=== PATIENT | female | born 1940 | race Caucasian/White ===

== ENCOUNTER → 2017-10-05 | Outpatient (CLI) | payer MEDICARE, OTHER ==
[~2017-10-05] MED LIST: BYSTOLIC2.5 MG PO; CLONIDINE0.1 PO; FLEXERIL PO; GARLIC OIL1 EACH PO; GARLIC OIL1000 MG PO; HYDROCODON-ACE1 EAC7 PO; LEVOTHYROXINE 0.1 MG PO; MAVIK1 MG PO; MAVIK2 MG PO; MIRALAX17 GM PO; NAPROSYN500 MG PO; PRILOSEC 20 MG20 MG PO; ZYRTEC10 MG PO
== END ==
LOC: M.RAD 13:36
DX: Z12.31 Encounter for screening mammogram for malignant neoplasm of breast (principal)

== ENCOUNTER → 2018-08-02 | Outpatient (CLI) | payer MEDICARE, BC ==
[2018-08-02 12:09] LABS: ABSOLUTE BASOPHILS 0.1 thou/uL (0.0-0.2); ABSOLUTE EOSINOPHILS 0.2 thou/uL (0.0-0.7); ABSOLUTE LYMPHOCYTES 2.7 thou/uL (0.8-5.3); ABSOLUTE MONOCYTES 0.8 thou/uL (0.0-1.2); ABSOLUTE NEUTROPHILS 4.5 thou/uL (1.6-8.1); BASOPHILS 1.1 %; EOSINOPHILS 2.4 %; HEMATOCRIT 36.9 % (37.0-47.0); HEMOGLOBIN 12.1 gm/dL (12.0-15.0); LYMPHOCYTES 32.6 %; MCH 29.4 pg (26.0-34.0); MCHC 32.7 g/dL (28.0-37.0); MCV 89.9 fL (80.0-100.0); MONOCYTES 9.1 %; MPV 7.1 fl. (7.2-11.1); NUCLEATED RBCS 0 /100WBC; PLATELET COUNT* 250 thou/uL (150-400); POLYS 54.8 %; RDW-CV 16.3 % (10.5-14.5); WBC 8.3 thou/uL (4.0-11.0)
== END ==
LOC: M.LAB 11:41
PROVIDERS: Nurse Practitioner
DX: D64.9 Anemia, unspecified (principal)

== ENCOUNTER → 2018-10-10 | Outpatient (CLI) | payer MEDICARE, OTHER | LOC: M.RAD 14:02 | DX: Z12.31 Encounter for screening mammogram for malignant neoplasm of breast (principal); N91.2 Amenorrhea, unspecified; M54.42 Lumbago with sciatica, left side; G89.29 Other chronic pain; Z96.641 Presence of right artificial hip joint; Z78.0 Asymptomatic menopausal state ==

== ENCOUNTER → 2019-01-12 | Outpatient (CLI) | payer MEDICARE, OTHER | LOC: M.RAD 15:38 | DX: M51.36 Other intervertebral disc degeneration, lumbar region (principal); M43.26 Fusion of spine, lumbar region; M41.86 Other forms of scoliosis, lumbar region ==

== ENCOUNTER → 2019-06-09 | Outpatient (CLI) | payer MEDICARE, OTHER ==
[2019-06-09 15:32] LABS: CREATININE 1.4 mg/dL (0.6-1.3)
== END ==
LOC: M.CT 14:30
PROVIDERS: Family Medicine
DX: J98.11 Atelectasis (principal); I70.0 Atherosclerosis of aorta; M25.78 Osteophyte, vertebrae

== ENCOUNTER 2019-12-18 19:55 | Emergency (ER) | payer MEDICARE, OTHER ==
[~2019-12-18] VITALS: Ht 175.3 cm; Wt 108.9 kg
--- NOTE | ~2019-12-18 | EMS ---
[address] [address] EMS Patient Care Report Name: ANGELIQUE LOFTON Room: [facility]#: [id number] Admission: 12/18/19 Attend Phys: Discharge: Date of : 44 Report #: [id number] THIS REPORT FOR: //name// Report Transmitted: 12/18/2019 20:09 EMS Care Summary [facility] Incident [phone] @ 12/18/2019 19:11 Incident Location [address] [place] [address] Patient ANGELIQUE LOFTON Female, 79 Years 1940 Patient Address [address] [place] [address] Patient History Hypertension (HTN),Thyroid Disease, Patient Allergies No known allergies, Chief Complaint Pain with possible fracture Disposition Transported No Lights/[place] Reason Traumatic Injury Transported To [facility] Narrative Dispatched to address noted for a fall with a possible broke arm. [facility] and Engine 1 en route and on scene at time noted. Arrived and found female patient sitting up, in her yard. Patient was GCS 15 and was holding her left arm that was injured. Patient stated that she was [address] [address] EMS Patient Care Report Name: [facility]EL[facility] LO[facility]ON [id number] Admission: 12/18/19 Attend Phys: Discharge: Date of : 44 Report #: [id number] attempting to take a photograph of a flower and tripped and fell. Patient denied any loss of consciousness or strikes to the head. Patient denied any other injuries and stated that her left arm was hyperextended backwards and she believes it is broken. Patient was stating that shortly after the fall she became dizzy and nauseous. Patient stated that she is currently dizzy and I placed my leg behind the patients back for support. Patient then had a syncopal episode and and the left arm was splinted with a AMPARO splint while she was unconscious. Patient had crepitus noted to left arm. Patient regained consciousness shortly after losing it and then [facility]. Then buckled in. [facility] was decided upon. Once in ambulance, vitals where started. IV obtained as noted. 4 lead placed. Patient was GCS 15 and history was obtained. No other trauma noted on secondary assessment. While en route, vitals where taken again and patient was given a total of 2 doses of 50 MCG of Fentanyl for pain. Radio report given at time noted. Arrived and took patient to room. Patient was moved to bed and RN was given verbal report. RN signed for patient and patient care. END REPORT EMT-P Yuan Mauro Initial Vitals @19:48P: 73, @19:24P: 79,R: 18,BP: 145/62,Pain: 8/10,GCS: 15,SpO2: 93,Revised Trauma: 12,DE Suspected: false @19:45P: 77,R: 16,BP: 136/83,Pain: 6/10,GCS: 15,SpO2: 99,Revised Trauma: 12,DE Suspected: false Assessments @19:39MENTAL:Person Oriented,Time Oriented,Event Oriented,Place Oriented,SKIN:HEENT:Head/Face: No Abnormalities,LUNG SOUNDS:General: No Abnormalities,ABDOMEN:General: No Abnormalities,PELVIS//GI:No Abnormalities,EXTREMITIES:Left Arm: Other,Right Arm: No Abnormalities,Left Leg: No Abnormalities,Right Leg: No Abnormalities,PULSE:NEURO:No Abnormalities, Impression Extremity Pain Procedures @19:30Normal Saline (.9% NaCl) - Cold 30cc (20 ga) Site: Forearm-RightResponse: UnchangedFailed@19:4412-Lead ECG@19:34Fentanyl - 50 Micrograms (mcg) - Intravenous (IV)Response: Unchanged@19:48Fentanyl - 50 Micrograms ([place]) [place] [address] EMS Patient Care Report Name: ANGELIQUE LOFTON Room: [facility]#: [id number] Admission: 12/18/19 Attend Phys: Discharge: Date of : 44 Report #: [id number] Intravenous (IV)Response: Unchanged Timeline 19:11,Call Received 19:11,Dispatched 19:12,En Route 19:15,Initial Responder On Scene 19:15,On Scene 19:16,At Patient 19:24,BP: 145/62 M,PULSE: 79,RR: 18 R,SPO2: 93 Ox,ETCO2: ,BG: ,PAIN: 8,GCS: 15, 19:30,Depart Scene 19:30,Normal Saline (.9% NaCl) - Cold 30cc 20 ga Site: Forearm-Right,Response: UnchangedFailed, 19:34,Fentanyl - 50 Micrograms (mcg) - Intravenous (IV),Response: Unchanged 19:44,12-Lead ECG, 19:45,BP: 136/83 M,PULSE: 77,RR: 16 R,SPO2: 99 Ox,ETCO2: ,BG: ,PAIN: 6,GCS: 15, 19:48,Fentanyl - 50 Micrograms (mcg) - Intravenous (IV),Response: Unchanged 19:48,BP: / M,PULSE: 73,RR: R,SPO2: Ox,ETCO2: ,BG: ,PAIN: ,GCS: , 19:50,At Destination 19:55,Transfer Patient 20:05,Call Closed 20:20,In [facility] Disclaimer v1.1 Copyright 2020 [employer] This EMS Care Summary contains data elements from the applicable legal record (which may be displayed differently). It is designed to provide pertinent information for the following purposes: continuity of care, clinical quality, and state data reporting. The complete legal record is available to ED staff and administrators of the receiving hospital in [employer]'s Patient Tracker. All data is provided "as is."
[2019-12-18] MEDS ORDERED: MELOXICAM15 MG PO (20:07)
[2019-12-18] MEDS ORDERED: LIPITOR 40 MG T40 M1 PO (20:08)
[2019-12-18] MEDS ORDERED: FLUOXETINE DR90 MG PO (20:08)
[2019-12-18] MEDS ORDERED: COZAAR 25 MG TA25 M1 PO (20:09)
[2019-12-18] MEDS ORDERED: LEVO-T75 MCG PO (20:09)
[2019-12-18] MEDS ORDERED: ZIOPTAN 0.00151 EACH OPHTHALMIC (20:09)
[2019-12-18] MEDS ORDERED: FISH OIL 1,001000 M3 PO (20:10)
[2019-12-18] MEDS ORDERED: LORCET 5-325 M1 EACH PO (22:16)
[2019-12-18 22:30] VITALS: BP 151/72
== END 2019-12-18 22:44 | disposition home or self-care (01) ==
LOC: M.ERS 19:55
DX: S52.125A Nondisplaced fracture of head of left radius, initial encounter for closed fracture (principal); S52.135A Nondisplaced fracture of neck of left radius, initial encounter for closed fracture; S53.115A Anterior dislocation of left ulnohumeral joint, initial encounter; I10 Essential (primary) hypertension; E78.00 Pure hypercholesterolemia, unspecified; Z96.653 Presence of artificial knee joint, bilateral; Z90.49 Acquired absence of other specified parts of digestive tract; Z90.710 Acquired absence of both cervix and uterus; Z96.643 Presence of artificial hip joint, bilateral; Z88.6 Allergy status to analgesic agent; W18.39XA Other fall on same level, initial encounter; Y93.89 Activity, other specified; Y92.89 Other specified places as the place of occurrence of the external cause; Y99.8 Other external cause status